=== PATIENT | male | born 1955 | race Caucasian/White ===

== ENCOUNTER 2018-01-04 17:12 | Emergency (ER) | payer OTHER ==
--- NOTE | 2018-01-04 17:34 | EDPHY ---
H & P Source: Patient Exam Limitations: Intoxication - Medical/Surgical History Other PMH: Past medical history: Alcohol dependence - Social History Alcohol Use: Heavy Time Seen by Provider: 01/04/18 17:14 HPI/ROS: CHIEF COMPLAINT: Alcohol intoxication HISTORY OF PRESENT ILLNESS: The patient is brought to the emergency department by paramedics after he was found intoxicated and unable to walk. The patient appears quite intoxicated in the emergency department is unable to provide much history. He denies any history of fall or trauma. He denies acute pain. REVIEW OF SYSTEMS: A comprehensive 10 point review of systems is otherwise negative aside from elements mentioned in the history of present illness. (Neel Espinoza) - Physical Exam Exam: General Appearance: Somnolent, arousable, alcohol on breath Head: Normocephalic, atraumatic Eyes: Pupils equal and round no pallor or injection ENT, Mouth: Mucous membranes moist Respiratory: There are no retractions, lungs are clear to auscultation Cardiovascular: Regular rate and rhythm Gastrointestinal: Abdomen is soft and nontender, no masses, bowel sounds normal Neurological: Withdrawals to pain all 4 extremities Skin: Warm and dry, no rashes Musculoskeletal: Neck is supple nontender Extremities: symmetrical, full range of motion (Neel Espinoza) Constitutional: Initial Vital Signs Temperature (C) 37.2 C 01/04/18 17:40 Heart Rate 72 01/04/18 17:40 Respiratory Rate 18 01/04/18 17:40 Blood Pressure 142/88 H 01/04/18 17:40 O2 Sat (%) 97 01/04/18 17:40 O2 Delivery Mode Nasal Cannula O2 (L/minute) 2 Allergies/Adverse Reactions: No Known Allergies Allergy (Unverified 10/07/12 11:20) Home Medications: Medication Instructions Recorded Md Angeles 10/0710/07/12 Mirtazapine [Remeron] 30 mg PO HS PRN 10/07/12 Pharmacy Completed 10/07/12 10/07/12 oxyCODONE/APAP 5/325 [Percocet 2 tab PO Q8 PRN 10/07/12 5/325 (RX)] Medical Decision Making ED Course/Re-evaluation: Patient presents the ED with altered mental status from alcohol intoxication. The patient's initial breathalyzer was .351. The patient was monitored in the emergency department. The plan will be for ED observation in anticipation of eminent sobriety. The patient will be turned over to Dr. Ro at 8:15pm. (Neel Espinoza) 9:30 p.m.-able to walk with a steady gait. Home with a sober friend. (Radha Ro) Departure - Departure Disposition: Home, Routine, Self-Care Clinical Impression: Alcoholic intoxication Qualifiers: Complication of substance-induced condition: uncomplicated Qualified Code(s): F10.920 - Alcohol use, unspecified with intoxication, uncomplicated Condition: Good Instructions: Alcohol Intoxication (ED) Referrals: Urvashi Hernandez MD [[facility] Primary Care Provider] - As per Instructions
[2018-01-05 02:56] VITALS: BP 139/78
== END 2018-01-04 21:48 | disposition home or self-care (01) ==
LOC: EDUNIT#
DX: F10.920 Alcohol use, unspecified with intoxication, uncomplicated (principal)